=== PATIENT | female | born 1970 | race Caucasian/White ===

== ENCOUNTER → 2016-04-20 | Outpatient (CLI) | payer OTHER ==
[2015-05-04 21:40] VITALS: BP 134/74
[~2016-04-20] MED LIST: ALLO300T PO; ASPI-482 PO; CELE200C PO; CLON1TAB PO; CONTRAST GIVEN MC PRN; ERGO400T2 PO; HYDR-2672 PO; IOHEXOL 240 MG/ML 50ML VIAL. PO ONE; IOHEXOL 300 MG/ML 100ML VIAL. IV ONE; METO25TA9 PO; OXYC20TA34 PO; PRAV20TA2 PO; RANI150T2 PO
--- NOTE | 2016-04-20 14:25 | KCIC ---
PROCEDURE CT of the abdomen and pelvis with contrast HISTORY Pancreatitis. Chronic abdominal pain. Cholecystectomy. Total hysterectomy. COMPARISON April 22, 2014. TECHNIQUE 100 cc Omnipaque 300 intravenous contrast. No oral contrast. Exposure: One or more of the following individualized dose reduction techniques were utilized for this exam: 1. Automated exposure control. 2. Adjustment of the mA and/or kV according to patient size. 3. Use of iterative reconstruction technique. FINDINGS Lung bases are clear. No evidence of pneumoperitoneum. Multiple hypodense lesions are identified in the liver greater towards the left, and appears similar as on the prior study. The 2 largest lesions demonstrate fluid density, compatible with cysts. The spleen is unremarkable. There is some fatty atrophy of the pancreas which appears otherwise unremarkable and is unchanged since the prior study. No evidence of acute peripancreatic inflammation fluid. No evidence of adrenal mass. The right kidney appears unremarkable. The left kidney is small and atrophic similar to the prior study. There has been development of a 2.3 centimeter low-density lesion at the lower pole of the left kidney, measures 7 Hounsfield units, compatible with a cyst. This was not present on the prior study. The gallbladder surgically absent. The previously seen biliary ductal dilatation has diminished at both the intrahepatic and extrahepatic aspects. The aorta is non aneurysmal. No evidence of bowel obstruction. No evidence pericolonic inflammation. The appendix appears normal. No evidence of ascites. No significant lymph node enlargement. There is mild borderline thickening of the urinary bladder wall, but this is unchanged since the prior study. Significance questionable. There are surgical clips at the anterior abdomen. There is a slight lower lumbar spinal curvature. There is mild facet joint degenerative hypertrophy at the lower lumbar spine. IMPRESSION 1. Previously seen biliary ductal dilatation has improved. 2. Multiple hepatic lesions compatible with cysts are relatively stable. 3. Development of a left lower pole renal cyst since prior study. 4. Borderline urinary bladder wall thickening, stable since the prior study. 5. Fatty atrophy of the pancreas, without acute peripancreatic changes. Electronically signed by: Domingo Ellsi MD (Apr 20, 2016 14:24:31)
== END | disposition home or self-care (01) ==
LOC: KCIC CT 12:17
PROVIDERS: ATTEND Family Medicine
DX: K85.90 Acute pancreatitis without necrosis or infection, unspecified (principal)
CPT/HCPCS: 74177; Q9966; Q9967

== ENCOUNTER → 2016-05-05 | Day surgery (SDC) | payer OTHER ==
[~2016-05-05] MED LIST changes: +ACYC800T PO; +CARI350T PO; -CONTRAST GIVEN MC PRN; +FENTANYL PF 100 MCG/2 ML VIAL. IV PRN; +HYDR25TA PO; -IOHEXOL 240 MG/ML 50ML VIAL. PO ONE; -IOHEXOL 300 MG/ML 100ML VIAL. IV ONE; +IV RINGERS,LACTATED 1000ML 1,000 ML IV SCH; +LIDOCAINE 1% 1 ML SYRINGE. ID PRN; +MIDAZOLAM HCL 2 MG/2 ML VIAL. IV PRN; +PROPOFOL 20 ML IV ONE
[2016-05-05 11:05] VITALS: BP 101/78
--- NOTE | 2016-05-08 13:26 | PATHOLOGY ---
PATHOLOGY REPORT * * * * * * * * FINAL DIAGNOSIS: Duodenal biopsy: - No significant pathologic abnormalities. COMMENT: Sections of the duodenal biopsy reveal segments of duodenal mucosa. Where best oriented, the mucosal villi appear normal. There are no sprue-like changes or significant inflammatory changes. (JPM:csd; d/t: 05/08/2016) REPORT ELECTRONICALLY SIGNED BY: Talon Osman M.D. DATE/TIME: 05/08/2016 13:25 * * * * * * * * GROSS PATHOLOGY: Received in formalin labeled "Keli Solorio, duodenal biopsy, R/O celiac sprue," are eight segments of izaguirre soft tissue measuring 1.2 x 1.1 x 0.2 cm in aggregate dimensions and ranging from 0.3 to 0.5 cm in maximum dimension. The specimen is submitted entirely in cassette A1. (CAA; 05/05/2016) INITIAL CPT CODE(S): A; 04742 Professional services performed by [facility] [place] [address] Technical services performed by [facility] at [address] [place] [address]. SPECIMEN(S) RECEIVED: A.Duodenal biopsy CLINICAL HISTORY: Diarrhea, abdominal pain PATIENT: KELI SOLORIO /AGE: 12 1970 (Age: 46) PATIENT #: [id number] ALT CASE #: SPECIMEN COLLECTION DATE: 05/05/2016 SPECIMEN RECEIVED DATE: 05/05/2016 [facility] - [address] [place] [address] - PHONE: [phone] * * * END OF REPORT * * *
== END | disposition home or self-care (01) ==
LOC: ENDOS 09:06
PROVIDERS: ATTEND Internal Medicine Gastroenterology
DX: K64.0 First degree hemorrhoids (principal); K29.50 Unspecified chronic gastritis without bleeding; K31.9 Disease of stomach and duodenum, unspecified; F41.9 Anxiety disorder, unspecified; F32.9 Major depressive disorder, single episode, unspecified; M19.90 Unspecified osteoarthritis, unspecified site; E78.00 Pure hypercholesterolemia, unspecified; F17.200 Nicotine dependence, unspecified, uncomplicated; I10 Essential (primary) hypertension; Z80.41 Family history of malignant neoplasm of ovary
CPT/HCPCS: 43239; 45378; J2704

== ENCOUNTER 2016-08-23 21:51 | Inpatient (IN) | payer OTHER ==
[~2016-08-23] VITALS: Ht 170.2 cm; Wt 79.5 kg
[~2016-08-23 21:51] MED LIST changes: -FENTANYL PF 100 MCG/2 ML VIAL. IV PRN; -HYDR-2672 PO; +HYDR-2766 PO; -IV RINGERS,LACTATED 1000ML 1,000 ML IV SCH; -LIDOCAINE 1% 1 ML SYRINGE. ID PRN; -MIDAZOLAM HCL 2 MG/2 ML VIAL. IV PRN; -PROPOFOL 20 ML IV ONE
[2016-08-23 22:27] LABS: BASO # 0.1 x10^3/uL (0.0-0.2); BASO % 1 % (0-3); EOS % 0 % (0-3); HEMATOCRIT 41.7 % (36.0-47.0); HEMOGLOBIN 14.3 g/dL (12.0-15.5); LYMPH # 3.7 x10^3/uL (1.0-4.8); LYMPH % 19 % (24-48); MEAN CORPUSCULAR HEMOGLOBIN 32 pg (25-35); MEAN CORPUSCULAR HGB CONC 34 g/dL (31-37); MEAN CORPUSCULAR VOLUME 93 fL (79-100); MONO % 8 % (0-9); NEUT % 72 % (31-73); PLATELET COUNT 292 x10^3/uL (140-400); RED CELL DISTRIBUTION WIDTH 15.2 % (11.5-14.5); WHITE BLOOD COUNT 19.1 x10^3/uL (4.0-11.0)
[2016-08-23 22:47] LABS: PLT ESTIMATE ADEQUATE (ADEQUATE)
[2016-08-23 22:55] LABS: BILIRUBIN,URINE SMALL (NEG); GLUCOSE,URINE NEGATIVE (NEG); NITRITE,URINE NEGATIVE (NEG); PH,URINE 5.5; PROTEIN,URINE >=300 mg/dL (NEG-TRACE); UROBILINOGEN,URINE 0.2 mg/dL (0.2 mg/dL)
[2016-08-23] MEDS ORDERED: MULTIVIT INFUSN,ADULT 4,VIT K 10 ML, FOLIC ACID 1 MG, THIAMINE 100 MG in IV NORMAL SALI... IV ONE (23:00)
[2016-08-23 23:02] LABS: BARBITURATES NEG (NEG); BENZODIAZEPINES NEG (NEG); CANNABINOIDS NEG (NEG); COCAINE NEG (NEG); METHADONE NEG (NEG); OPIATES POS (NEG); PHENCYCLIDINE NEG (NEG)
[2016-08-23 23:03] LABS: BACTERIA,URINE FEW /HPF (0-FEW); RBC,URINE 0 /HPF (0-2); WBC,URINE OCC /HPF (0-4)
[2016-08-23 23:10] LABS: ETHANOL < 10 mg/dL (0-10)
[2016-08-23 23:23] LABS: CALCIUM 9.5 mg/dL (8.5-10.1); CREATININE 0.8 mg/dL (0.6-1.0); GFR 76.9; POTASSIUM 3.2 mmol/L (3.5-5.1)
[2016-08-24] MEDS: POTASSIUM CHLORIDE 20 MEQ/15 ML ORAL LIQUID. PO ONE ×2 (00:09→00:40)
[2016-08-24] MEDS: chlordiazePOXIDE HCL 25 MG CAPSULE PO SCH ×4 (00:15→17:47)
[2016-08-24 00:34] LABS: ALBUMIN 4.2 g/dL (3.4-5.0); DIRECT BILIRUBIN 0.2 mg/dL (0.0-0.2); TOTAL BILIRUBIN 0.7 mg/dL (0.2-1.0); TOTAL PROTEIN 7.6 g/dL (6.4-8.2)
[2016-08-24] MEDS ORDERED: ACETAMINOPHEN 325 MG TABLET. PO PRN (01:15)
[2016-08-24] MEDS ORDERED: ONDANSETRON PF 4 MG/2 ML VIAL. IV PRN ×2 (01:15→07:27)
[2016-08-24] MEDS: POTASSIUM CHLORIDE 40 MEQ in IV NORMAL SALINE 1000ML BAG 1,000 ML IV SCH ×3 (01:53→21:20)
[2016-08-24 03:00] VITALS: BP 132/93
--- NOTE | 2016-08-24 04:08 | ED.ADGEN ---
Past Medical History Past Medical History: Anxiety, Arthritis Additional Past Medical Histor: scoliosis, DDD,PANIC ATTACKS, AGORAPHOBIA, LIVER DAMAGE, CHRONIC BACK PAIN Past Surgical History: Additional Past Surgical Histo: pt is on a pain contract Alcohol Use: Occasionally Drug Use: None Adult General Chief Complaint Chief Complaint: SUICDAL IDEATION HPI HPI Patient is a 46 year old woman, history of anxiety, depression, arthritis, agoraphobia, who presents emergency department via EMS with a complaint of suicidal ideation. Patient states that she misses her family, especially her children, who are not with her currently, and feels that life is not worth living. She states that she plans to "shoot myself in the head with my gun". She she does have a gun at home. She denies any recent self injury behavior or ingestions. States that she did drink a half pint of liquor earlier today, states that she does drink daily, about a half pint of liquor, denies any drug use. She states that she has had suicidal ideation as been hospitalized previously, and has been seen by a counselor before, but not for several years. She states that she does take Klonopin as needed for anxiety as prescribed by her primary care provider. She is denying all complaints at this time, aside from a feeling of anxiety and depression with active suicidal ideation as stated. Denies any auditory or visual hallucinations, any homicidal ideation. Noted to be tachycardic in the 1 teens. She states she was recently seen at an outside hospital, cannot recall the name, where she was prescribed Pepcid, as she was having "excessive drooling". Review of Systems Review of Systems Constitutional: Denies fever or chills. [] Eyes: Denies change in visual acuity. [] HENT: Denies nasal congestion or sore throat. [] Respiratory: Denies cough or shortness of breath. [] Cardiovascular: Denies chest pain or edema. [] GI: Denies abdominal pain, nausea, vomiting, bloody stools or diarrhea. [] : Denies dysuria. [] Musculoskeletal: Denies back pain or joint pain. [] Integument: Denies rash. [] Neurologic: Denies headache, focal weakness or sensory changes. [] Endocrine: Denies polyuria or polydipsia. [] Lymphatic: Denies swollen glands. [] Psychiatric: Depression with suicidal ideation, anxiety. Current Medications Current Medications Current Medications Medications (Trade) Dose Ordered Sig/Chelly Start Time Stop Time Status Last Admin Dose Admin Multivitamins 10 ml/Folic Acid 1 mg/Thiamine HCl 100 mg/Sodium Chloride 1,011.2 ml @ 1,000 mls/ hr 1X ONCE 08/23/16 23:00 08/24/16 00:00 DC 08/23/16 22:33 1,000 MLS/HR Allergies Allergies Allergies Coded Allergies Type Severity Reaction Last Updated Verified ketorolac Allergy Severe anaphylaxis 05/05/16 No Penicillins Allergy Intermediate rash 05/05/16 Yes celecoxib Allergy Intermediate hives 05/05/16 Yes propoxyphene Allergy Intermediate 05/05/16 No haloperidol Adverse Reaction Severe altered mental status 05/05/16 Yes clindamycin Adverse Reaction Intermediate vomiting 05/05/16 Yes erythromycin base Adverse Reaction Intermediate vomiting 05/05/16 No Physical Exam Physical Exam Constitutional: Well developed, well nourished, no acute distress, non-toxic appearance. [] HENT: Normocephalic, atraumatic, bilateral external ears normal, oropharynx moist, no oral exudates, nose normal. [] Eyes: PERRLA, EOMI, conjunctiva normal, no discharge. [] Neck: Normal range of motion, no tenderness, supple, no stridor. [] Cardiovascular:Heart rate regular rhythm, no murmur [] Lungs & Thorax: Bilateral breath sounds clear to auscultation [] Abdomen: Bowel sounds normal, soft, no tenderness, no masses, no pulsatile masses. [] Skin: Warm, dry, no erythema, no rash. [] Back: No tenderness, no CVA tenderness. [] Extremities: No tenderness, no cyanosis, no clubbing, ROM intact, no edema. [] Neurologic: Alert and oriented X 3, normal motor function, normal sensory function, no focal deficits noted. [] Psychologic: Affect normal, judgement normal, mood normal. [] Current Patient Data Vital Signs Vital Signs Date Time Temp Pulse Resp B/P (MAP) Pulse Ox O2 Delivery O2 Flow Rate FiO2 08/23/16 23:54 98 22 146/97 (113) 98 Room Air 08/23/16 21:55 98.5 98.5 Lab Values Laboratory Tests Test 08/23/16 22:05 08/23/16 22:48 White Blood Count 19.1 x10^3/uL (4.0-11.0) H Red Blood Count 4.50 x10^6/uL (3.50-5.40) Hemoglobin 14.3 g/dL (12.0-15.5) Hematocrit 41.7 % (36.0-47.0) Mean Corpuscular Volume 93 fL (79-100) Mean Corpuscular Hemoglobin 32 pg (25-35) Mean Corpuscular Hemoglobin Concent 34 g/dL (31-37) Red Cell Distribution Width 15.2 % (11.5-14.5) H Platelet Count 292 x10^3/uL (140-400) Neutrophils (%) (Auto) 72 % (31-73) Lymphocytes (%) (Auto) 19 % (24-48) L Monocytes (%) (Auto) 8 % (0-9) Eosinophils (%) (Auto) 0 % (0-3) Basophils (%) (Auto) 1 % (0-3) Neutrophils # (Auto) 13.7 x10^3uL (1.8-7.7) H Lymphocytes # (Auto) 3.7 x10^3/uL (1.0-4.8) Monocytes # (Auto) 1.6 x10^3/uL (0.0-1.1) H Eosinophils # (Auto) 0.1 x10^3/uL (0.0-0.7) Basophils # (Auto) 0.1 x10^3/uL (0.0-0.2) Segmented Neutrophils % 68 % (35-66) H Band Neutrophils % 1 % (0-9) Lymphocytes % 25 % (24-48) Monocytes % 6 % (0-10) Platelet Estimate Adequate (ADEQUATE) Sodium Level 126 mmol/L (136-145) L Potassium Level 3.2 mmol/L (3.5-5.1) L Chloride Level 89 mmol/L (98-107) L Carbon Dioxide Level 23 mmol/L (21-32) Anion Gap 14 (6-14) Blood Urea Nitrogen 11 mg/dL (7-20) Creatinine 0.8 mg/dL (0.6-1.0) Estimated GFR (Cockcroft-Gault) 76.9 Glucose Level 139 mg/dL (70-99) H Calcium Level 9.5 mg/dL (8.5-10.1) Total Bilirubin 0.7 mg/dL (0.2-1.0) Direct Bilirubin 0.2 mg/dL (0.0-0.2) Aspartate Amino Transferase (AST) 19 U/L (15-37) Alanine Aminotransferase (ALT) 20 U/L (14-59) Alkaline Phosphatase 101 U/L (46-116) Total Protein 7.6 g/dL (6.4-8.2) Albumin 4.2 g/dL (3.4-5.0) Lipase 160 U/L (73-393) Salicylates Level 5.1 mg/dL (2.8-20.0) Salicylate Last Dose Date Unknown Salicylate Last Dose Time Unknown Acetaminophen Level < 2 mcg/ml (10-30) L Acetaminophen Last Dose Date Unknown Acetaminophen Last Dose Time Unknown Ethyl Alcohol Level < 10 mg/dL (0-10) Urine Collection Type U cath Urine Color [place] Urine Clarity Clear Urine pH 5.5 Urine Specific [place] 1.020 Urine Protein >=300 mg/dL (NEG-TRACE) Urine Glucose (UA) Negative mg/dL (NEG) Urine Ketones (Stick) Negative mg/dL (NEG) Urine Blood Moderate (NEG) Urine Nitrite Negative (NEG) Urine Bilirubin Small (NEG) Urine Urobilinogen Dipstick 0.2 mg/dL (0.2 mg/dL) Urine Leukocyte Esterase Negative (NEG) Urine RBC 0 /HPF (0-2) Urine WBC Occ /HPF (0-4) Urine Bacteria Few /HPF (0-FEW) Urine Hyaline Casts Few /HPF Urine Mucus Mod /LPF Urine Opiates Screen Pos (NEG) Urine Methadone Screen Neg (NEG) Urine Barbiturates Neg (NEG) Urine Phencyclidine Screen Neg (NEG) Urine Amphetamine/Methamphetamine Neg (NEG) Urine Benzodiazepines Screen Neg (NEG) Urine Cocaine Screen Neg (NEG) Urine Cannabinoids Screen Neg (NEG) Urine Ethyl Alcohol (NEG) Laboratory Tests 08/23/16 22:05 Laboratory Tests 08/23/16 22:05 EKG EKG EC: Sinus tachycardia, heart rate 119 bpm, upright axis, QTC of 504, AK of 138, QR 72, aside from mildly prolonged QTc, and contour abnormalities noted in the anterior lateral leads, no other abnormalities identified. Abdomen normal ECG, does not meet STEMI criteria. As interpreted by me. [] Radiology/Procedures Radiology/Procedures Chest x-ray: Two-view: Normal cardiopulmonary silhouette, no infiltrates, no effusions, no pneumothorax, no soft tissue or bony abnormalities identified. As interpreted by me. [] Course & Med Decision Making Course & Med Decision Making Pertinent Labs and Imaging studies reviewed. (See chart for details) Patient noted be tachycardic upon arrival, admits to alcohol use, states that she is anxious, and is actively suicidal. Discussed with patient that she will need be medically cleared, and medical clearance is obtained and will be able to refer her to the psychiatric assessment team to for assistance with her depression. Patient is agreeable this plan. Due to her report of daily alcohol use, banana bag infusion initiated, laboratory studies obtained. Patient remains mildly tachycardic, heart rate now in the 90s to low 100s blood pressure elevated, 160s over 80s and 90s, respiratory rate 18, unlabored, oxygen saturation between 95-98% on room air. Laboratory studies reveal a sodium of 126, and a potassium of 3.2, patient with leukocytosis of 19 with a bandemia and a left shift. Urinalysis unremarkable. Patient states that she has an occasional non-productive cough, but denies abdominal pain, nausea or vomiting, any difficulty breathing, productive cough, fevers or chills, or other source for her leukocytosis. No recent medication ingestions per report. Discussed with patient that due to her laboratory abnormalities, she'll require admission to the hospital with administration of IV fluids, repletion, and monitoring. Patient is agreeable this plan. She is placed on alcohol withdrawal protocol, alcohol level in the ED is less than 10. She was able to tolerate 28 oral potassium in the ED, additional 40 mEq of potassium placed in normal saline to be infused at 100 MLS an hour, has no source for her leukocytosis is identified, will hold off on treatment, will continue to follow laboratory studies this may be reactive process. Patient admitted to the medical telemetry floor with plan for monitoring, consultation with the psychiatric assessment team when she is medically cleared, under the service of Dr. Markham. Vanessa Disclaimer Vanessa Disclaimer This electronic medical record was generated, in whole or in part, using a voice recognition dictation system. Departure Impression: Primary Impression: Suicidal ideations Additional Impressions: Hyponatremia Tachycardia Disposition: 09 ADMITTED INPATIENT Condition: STABLE Problem Qualifiers MACHELLE LAZCANO DO Aug 24, 2016 04:08
--- NOTE | 2016-08-24 06:48 | EKG ---
[facility] [address] [place] [address] Test Date: 2016-08-23 Test Time: 22:34:44 Pat Name: JANINA BOND Department: Room: Gender: F [employer]rom[employer]ist: : 1970 Requested By: MACHELLE LAZCANO Order Number: [id number] Reading MD: Measurements Intervals [place] Rate: 119 P: 55 RI: 138 QRS: 7 QRSD: 72 T: 62 QT: 358 QTc: 504 Interpretive Statements SINUS TACHYCARDIA LEFT ATRIAL ABNORMALITY QRS(T) CONTOUR ABNORMALITY CONSIDER ANTEROLATERAL MYOCARDIAL DAMAGE ABNORMAL ECG RI6.01 No previous ECG available for comparison
[2016-08-24 07:00] VITALS: BP 141/87
--- NOTE | 2016-08-24 07:18 | RAD ---
Chest, 2 views, 08/23/2016: History: Cough Comparison is made to a study from 12/09/2009. The heart size and pulmonary vascularity are normal. No pulmonary infiltrates are seen. There is no evidence of pleural fluid. IMPRESSION: No acute cardiopulmonary abnormality is detected.
[2016-08-24 10:38] VITALS: BP 150/95
[2016-08-24] MEDS ORDERED: CARISOPRODOL 350 MG TABLET PO PRN (11:30)
--- NOTE | 2016-08-24 11:32 | PDOC1 ---
History and Physical Date of Admission Date of Admission DATE: 08/24/16 TIME: 11:19 Identification/Chief Complaint Chief Complaint SI Problems: Source Source: Caregiver, Chart review, Patient History of Present Illness History of Present Illness 46 y.o female, admitted thru ER last night bec of active SI. She has solid plans of hurting ehrself, she has a gun at home and plans on shooting herself, She does have hx of previous suicide atte,pts before, last was yrs ago , Positive hx of Depression in family, father I believe also had SI? and major depression, FAther ? and she breaks down in tears as soon as I ask details of how long ago this was or reason, Assessed by our mental counsellor, will try to look for psych facilities, Pt is agreeable to go in, Sitter at bedside, Ate only minimal breakfast this AM. LAbs: WBC 19, Na 126, K 3.2 UA clean urine nut has proteinuria, CXR I have personally reviewed, normal Past Medical History Cardiovascular: HTN Pulmonary: Bronchitis Psych: Depression Infectious disease: Herpes simplex2 Past Surgical History Past Surgical History: No pertinent history Family History Family History: Depression Family History: Parent Social History Smoke: No ALCOHOL: rare Drugs: None Current Problem List Problem List Problems Medical Problems: (1) Hyponatremia Status: Acute (2) Suicidal ideations Status: Acute (3) Tachycardia Status: Acute Problems: Current Medications Current Medications Current Medications Multivitamins 10 ml/Folic Acid 1 mg/Thiamine HCl 100 mg/Sodium Chloride 1,011.2 ml @ 1,000 mls/ hr 1X ONCE IV Last administered on 08/23/16 22:33; Start 08/23 at 23:00; Stop 08/24/16 at 00:00; Status DC Potassium Chloride (KCl Oral Soln) 40 meq 1X ONCE PO Last administered on 00:40; Start 08/24/16 at 00:15; Stop 08/24/16 at 00:16; Status DC Chlordiazepoxide (Librium) 25 mg Q6HRS PO Last administered on 08/24/16 05:42; Start 08/24/16 at 00:15; Stop 08/25/16 at 06:01 Ondansetron HCl (Zofran) 4 mg PRN Q8HRS PRN IV NAUSEA/VOMITING; Start 08/24/16 at 01:15; Stop 08/24/16 at 07:28; Status DC Potassium Chloride 40 meq/ Sodium Chloride 1,020 ml @ 100 mls/hr [id number] IV Last administered on 08/24/16t 01:53; Start 08/24/16 at 02:00; Stop 08/25/16 at 01: 59 Acetaminophen (Tylenol) 650 mg PRN Q4HRS PRN PO FEVER; Start 08/24/16 at 01:15; Stop 08/25/16 at 01:14 Ondansetron HCl (Zofran) 4 mg PRN Q6HRS PRN IV NAUSEA/VOMITING; Start 08/24/16 at 07:27; Stop 08/25/16 at 07:26 Active Scripts Active Reported Hydroxyzine Hcl 25 Mg Tablet 25 Mg PO TID Acyclovir 800 Mg Tablet 800 Mg PO DAILY Soma (Carisoprodol) 350 Mg Tablet 350 Mg PO TID&HS Klonopin (Clonazepam) 1 Mg Tablet 1 Tab PO TID Allopurinol 300 Mg Tablet 1 Tab PO DAILY Metoprolol Succinate ( Xl ) (Metoprolol Succinate) 25 Mg Tab.er.24h 1 Tab PO DAILY Pravastatin Sodium 20 Mg Tablet 1 Tab PO DAILY Celebrex (Celecoxib) 200 Mg Capsule 1 Cap PO DAILY Hydrocodone-Apap 10-325 (Hydrocodone Bit/Acetaminophen) 1 Each Tablet 1 Tab PO PRN Q6HRS PRN Oxycontin (Oxycodone HCl) 20 Mg Tab.er.12h 20 Mg PO BID Vitamin D2 (Ergocalciferol (Vitamin D2)) 400 Unit Tablet 400 Unit PO Ranitidine Hcl 150 Mg Tablet 1 Tab PO BID Aspir 81 (Aspirin) 81 Mg Tablet.dr 1 Tab PO DAILY Allergies Allergies: Coded Allergies: ketorolac (Unverified Allergy, Severe, anaphylaxis, 05/05/16) Penicillins (Verified Allergy, Intermediate, rash, 05/05/16) celecoxib (Verified Allergy, Intermediate, hives, 05/05/16) propoxyphene (Unverified Allergy, Intermediate, 05/05/16) haloperidol (Verified Adverse Reaction, Severe, altered mental status, ) clindamycin (Verified Adverse Reaction, Intermediate, vomiting, 05/05/16) erythromycin base (Unverified Adverse Reaction, Intermediate, vomiting, ) ROS General: No: Chills, Night Sweats, Fatigue, Malaise, Appetite, Other PSYCHOLOGICAL ROS: YES: Behavioral Disorder, Decreased libido, Depression, Irritablity, Mood Swings Eyes: No Blurry vision, No Decreased vision, No Double vision, No Dry eyes, No Excessive tearing, No Eye Pain, No Itchy Eyes, No Loss of vision, No Photophobia , No Scotomata, No Uses contacts, No Uses glasses, No Other HEENT: No: Heacaches, Visual Changes, Hearing change, Nasal congestion, Nasal discharge, Oral lesions, Sinus pain, Sore Throat, Epistaxis, Sneezing, Snoring, Tinnitus, Vertigo, Vocal changes, Other ALLERGY AND IMMUNOLOGY: No: Hives, Insect Bite Sensitivity, Itchy/Watery Eyes, Nasal Congestion, Post Nasal Drip, Seasonal Allergies, Other Hematological and Lymphatic: No: Bleeding Problems, Blood Clots, Blood Transfusions, Brusing, Night Sweats, Pallor, Swollen Lymph Nodes, Other ENDOCRINE: No: Breast Changes, Galactorrhea, Hair Pattern Changes, Hot Flashes , Malaise/lethargy, Mood Swings, Palpitations, Polydipsia/polyuria, Skin Changes , Temperature Intolerance, Unexpected Weight Changes, Other Breast: No New/Changing Breast Lumps, No Nipple changes, No Nipple discharge, No Other Respiratory: No: Cough, Hemoptysis, Orthopnea, Pleuritic Pain, Shortness of breath, SOB with excertion, Sputum Changes, Stridor, Tachypnea, Wheezing, Other Cardiovascular: No Chest Pain, No Palpitations, No Orthopnea, No Paroxysmal Noc. Dyspnea, No Edema, No Lt Headedness, No Other Gastrointestinal: No Nausea, No Vomiting, No Abdominal Pain, No Diarrhea, No Constipation, No Melena, No Hematochezia, No Other Genitourinary: No Dysuria, No Frequency, No Incontinence, No Hematuria, No Retention, No Discharge, No Urgency, No Pain, No Flank Pain, No Other, No , No , No , No , No , No , No Musculoskeletal: No Gait Disturbance, No Joint Pain, No Joint Stiffness, No Joint Swelling, No Muscle Pain, No Muscular Weakness, No Pain In:, No Swelling In:, No Other Neurological: Yes Behavorial Changes Skin: No Dry Skin, No Eczema, No Hair Changes, No Lumps, No Mole Changes, No Mottling, No Nail Changes, No Pruritus, No Rash, No Skin Lesion Changes, No Other, No Acne Physical Exam General: Alert, Oriented X3, Cooperative, No acute distress HEENT: Atraumatic, PERRLA, EOMI Lungs: Clear to auscultation, Normal air movement Heart: S1S2, RRR, no thrills, no rubs, no gallops, no murmurs Cardiovascular: S1, S2 Breasts: Normal, Rt breast nml w/o mass, Lt breast nml w/o mass, Nipples normal Abdomen: Normal bowel sounds, Soft, No tenderness, No hepatosplenomegaly, No masses Rectal Exam: not examined PELVIC: Nml ext genitalia Extremities: No clubbing, No cyanosis, No edema, Normal pulses, No tenderness/ swelling Skin: No rashes, No breakdown, No significant lesion Neuro: Normal gait, Normal speech, Strength at 5/5 X4 ext, Normal tone, Sensation intact, Cranial nerves 3-12 NL, Reflexes 2+ Psych/Mental Status: Mental status NL, Mood NL Vitals Vitals Vital Signs Date Time Temp Pulse Resp B/P (MAP) Pulse Ox O2 Delivery O2 Flow Rate FiO2 08/24/16 10:38 97.9 108 18 150/95 (113) 98 Room Air 97.9 Labs Labs Laboratory Tests Test 08/23/16 22:05 08/23/16 22:48 White Blood Count 19.1 x10^3/uL (4.0-11.0) Red Blood Count 4.50 x10^6/uL (3.50-5.40) Hemoglobin 14.3 g/dL (12.0-15.5) Hematocrit 41.7 % (36.0-47.0) Mean Corpuscular Volume 93 fL (79-100) Mean Corpuscular Hemoglobin 32 pg (25-35) Mean Corpuscular Hemoglobin Concent 34 g/dL (31-37) Red Cell Distribution Width 15.2 % (11.5-14.5) Platelet Count 292 x10^3/uL (140-400) Neutrophils (%) (Auto) 72 % (31-73) Lymphocytes (%) (Auto) 19 % (24-48) Monocytes (%) (Auto) 8 % (0-9) Eosinophils (%) (Auto) 0 % (0-3) Basophils (%) (Auto) 1 % (0-3) Neutrophils # (Auto) 13.7 x10^3uL (1.8-7.7) Lymphocytes # (Auto) 3.7 x10^3/uL (1.0-4.8) Monocytes # (Auto) 1.6 x10^3/uL (0.0-1.1) Eosinophils # (Auto) 0.1 x10^3/uL (0.0-0.7) Basophils # (Auto) 0.1 x10^3/uL (0.0-0.2) Segmented Neutrophils % 68 % (35-66) Band Neutrophils % 1 % (0-9) Lymphocytes % 25 % (24-48) Monocytes % 6 % (0-10) Platelet Estimate Adequate (ADEQUATE) Sodium Level 126 mmol/L (136-145) Potassium Level 3.2 mmol/L (3.5-5.1) Chloride Level 89 mmol/L (98-107) Carbon Dioxide Level 23 mmol/L (21-32) Anion Gap 14 (6-14) Blood Urea Nitrogen 11 mg/dL (7-20) Creatinine 0.8 mg/dL (0.6-1.0) Estimated GFR (Cockcroft-Gault) 76.9 Glucose Level 139 mg/dL (70-99) Calcium Level 9.5 mg/dL (8.5-10.1) Total Bilirubin 0.7 mg/dL (0.2-1.0) Direct Bilirubin 0.2 mg/dL (0.0-0.2) Aspartate Amino Transf (AST/SGOT) 19 U/L (15-37) Alanine Aminotransferase (ALT/SGPT) 20 U/L (14-59) Alkaline Phosphatase 101 U/L (46-116) Total Protein 7.6 g/dL (6.4-8.2) Albumin 4.2 g/dL (3.4-5.0) Lipase 160 U/L (73-393) Salicylates Level 5.1 mg/dL (2.8-20.0) Salicylate Last Dose Date Unknown Salicylate Last Dose Time Unknown Acetaminophen Level < 2 mcg/ml (10-30) Acetaminophen Last Dose Date Unknown Acetaminophen Last Dose Time Unknown Ethyl Alcohol Level < 10 mg/dL (0-10) Urine Collection Type U cath Urine Color [place] Urine Clarity Clear Urine pH 5.5 Urine Specific [place] 1.020 Urine Protein >=300 mg/dL (NEG-TRACE) Urine Glucose (UA) Negative mg/dL (NEG) Urine Ketones (Stick) Negative mg/dL (NEG) Urine Blood Moderate (NEG) Urine Nitrite Negative (NEG) Urine Bilirubin Small (NEG) Urine Urobilinogen Dipstick 0.2 mg/dL (0.2 mg/dL) Urine Leukocyte Esterase Negative (NEG) Urine RBC 0 /HPF (0-2) Urine WBC Occ /HPF (0-4) Urine Bacteria Few /HPF (0-FEW) Urine Hyaline Casts Few /HPF Urine Mucus Mod /LPF Urine Opiates Screen Pos (NEG) Urine Methadone Screen Neg (NEG) Urine Barbiturates Neg (NEG) Urine Phencyclidine Screen Neg (NEG) Urine Amphetamine/Methamphetamine Neg (NEG) Urine Benzodiazepines Screen Neg (NEG) Urine Cocaine Screen Neg (NEG) Urine Cannabinoids Screen Neg (NEG) Urine Ethyl Alcohol (NEG) Laboratory Tests Test 08/23/16 22:05 08/23/16 22:48 White Blood Count 19.1 x10^3/uL (4.0-11.0) Red Blood Count 4.50 x10^6/uL (3.50-5.40) Hemoglobin 14.3 g/dL (12.0-15.5) Hematocrit 41.7 % (36.0-47.0) Mean Corpuscular Volume 93 fL (79-100) Mean Corpuscular Hemoglobin 32 pg (25-35) Mean Corpuscular Hemoglobin Concent 34 g/dL (31-37) Red Cell Distribution Width 15.2 % (11.5-14.5) Platelet Count 292 x10^3/uL (140-400) Neutrophils (%) (Auto) 72 % (31-73) Lymphocytes (%) (Auto) 19 % (24-48) Monocytes (%) (Auto) 8 % (0-9) Eosinophils (%) (Auto) 0 % (0-3) Basophils (%) (Auto) 1 % (0-3) Neutrophils # (Auto) 13.7 x10^3uL (1.8-7.7) Lymphocytes # (Auto) 3.7 x10^3/uL (1.0-4.8) Monocytes # (Auto) 1.6 x10^3/uL (0.0-1.1) Eosinophils # (Auto) 0.1 x10^3/uL (0.0-0.7) Basophils # (Auto) 0.1 x10^3/uL (0.0-0.2) Segmented Neutrophils % 68 % (35-66) Band Neutrophils % 1 % (0-9) Lymphocytes % 25 % (24-48) Monocytes % 6 % (0-10) Platelet Estimate Adequate (ADEQUATE) Sodium Level 126 mmol/L (136-145) Potassium Level 3.2 mmol/L (3.5-5.1) Chloride Level 89 mmol/L (98-107) Carbon Dioxide Level 23 mmol/L (21-32) Anion Gap 14 (6-14) Blood Urea Nitrogen 11 mg/dL (7-20) Creatinine 0.8 mg/dL (0.6-1.0) Estimated GFR (Cockcroft-Gault) 76.9 Glucose Level 139 mg/dL (70-99) Calcium Level 9.5 mg/dL (8.5-10.1) Total Bilirubin 0.7 mg/dL (0.2-1.0) Direct Bilirubin 0.2 mg/dL (0.0-0.2) Aspartate Amino Transf (AST/SGOT) 19 U/L (15-37) Alanine Aminotransferase (ALT/SGPT) 20 U/L (14-59) Alkaline Phosphatase 101 U/L (46-116) Total Protein 7.6 g/dL (6.4-8.2) Albumin 4.2 g/dL (3.4-5.0) Lipase 160 U/L (73-393) Salicylates Level 5.1 mg/dL (2.8-20.0) Salicylate Last Dose Date Unknown Salicylate Last Dose Time Unknown Acetaminophen Level < 2 mcg/ml (10-30) Acetaminophen Last Dose Date Unknown Acetaminophen Last Dose Time Unknown Ethyl Alcohol Level < 10 mg/dL (0-10) Urine Collection Type U cath Urine Color [place] Urine Clarity Clear Urine pH 5.5 Urine Specific [place] 1.020 Urine Protein >=300 mg/dL (NEG-TRACE) Urine Glucose (UA) Negative mg/dL (NEG) Urine Ketones (Stick) Negative mg/dL (NEG) Urine Blood Moderate (NEG) Urine Nitrite Negative (NEG) Urine Bilirubin Small (NEG) Urine Urobilinogen Dipstick 0.2 mg/dL (0.2 mg/dL) Urine Leukocyte Esterase Negative (NEG) Urine RBC 0 /HPF (0-2) Urine WBC Occ /HPF (0-4) Urine Bacteria Few /HPF (0-FEW) Urine Hyaline Casts Few /HPF Urine Mucus Mod /LPF Urine Opiates Screen Pos (NEG) Urine Methadone Screen Neg (NEG) Urine Barbiturates Neg (NEG) Urine Phencyclidine Screen Neg (NEG) Urine Amphetamine/Methamphetamine Neg (NEG) Urine Benzodiazepines Screen Neg (NEG) Urine Cocaine Screen Neg (NEG) Urine Cannabinoids Screen Neg (NEG) Urine Ethyl Alcohol (NEG) VTE Prophylaxis Ordered VTE Prophylaxis Devices: Yes VTE Pharmacological Prophylaxi: Yes Assessment/Plan Assessment/Plan 1. Active suicide intent with clear plan 2. Severe major depression 3. FAm hx of major depression 4. Hyponatremia 5. Hypokalemia PLAN: admit Cont NS IVF Check TSH Replace K orally Recheck BMP juvencio SW assessment/mental healths screen - on going COnt justin malave pt, RN , justin and MICHAELA Vanegas MD Aug 24, 2016 11:32
[2016-08-24] MEDS ORDERED: CELECOXIB 200 MG CAPSULE. PO SCH (12:00)
[2016-08-24] MEDS: METOPROLOL SUCC 24HR ER 25 MG TAB.ER.24H. PO SCH (12:52)
[2016-08-24] MEDS: ASPIRIN ENTERIC COATED 81 MG TABLET.DR. PO SCH (12:52)
[2016-08-24] MEDS: ALLOPURINOL 300 MG TABLET. PO SCH (12:52)
[2016-08-24] MEDS: hydrOXYzine PAMOATE 25 MG CAPSULE PO SCH ×2 (12:52→20:46)
[2016-08-24] MEDS: FAMOTIDINE 20 MG TABLET. PO SCH ×2 (12:53→20:46)
[2016-08-24 14:31] VITALS: BP 152/94
--- NOTE | 2016-08-24 15:02 | ACF ---
Admission Forms Criteria PSYCHIATRIC DISORDERS Clinical Indications for Inpatient Care (Place 'X' for any and all applicable criteria): Ongoing inpatient care may be needed for 1 or more of the following(1)(2)(3)(4)( 6)(7)(8): [X ]I. Danger to self or others not manageable at lower level of care. [ ]II. Grave disability (eg, inability to perform self care necessary at lower level of care) [ ]III. Agitation or inappropriate behavior interfering with care for primary condition (eg, attempting to discontinue lines or drains prematurely, unable to cooperate with respiratory care) [ ]IV. Severe disability or disorder indicated by ALL of the following: [ ]a) Severe behavioral health disorder-related symptoms or condition indicated by 1 or more of the following: [ ]i) Severe problem with cognition, memory, judgment, or impulse control [ ]ii) Severe clinical manifestations (eg, hallucinations, delusions, other acute psychotic symptoms, wilian, extreme agitation or anxiety) [ ]b) Patient management at lower level of care is not feasible until acute intervention or modification is initiated. Extended stay beyond goal length of stay for the primary condition may be needed untilALLof the following are present(1)(2)(3)(4)7)17)(23): [ ]a) Danger to self or others is absent or manageable at lower level of care [ ]b) Behavior crisis management, including physical or chemical restraints, is required and is not available at a lower level of care. [ ]c) Behavioral symptoms (e.g., agitation, somnolence, inappropriate behavior) are present, and are not manageable at a lower level of care. [ ]d) Patient cannot understand follow-up treatment and crisis plan. [ ]e) Provider and supports are sufficiently available at lower level of care. [ ]f) Patient can participate (e.g., verify absence of plan for harm) and is in needed of monitoring. The original [facility] content created by [facility] has been revised. The portions of the content which have been revised are identified through the use of italic text, and [employer] has neither reviewed nor approved the modified material. All other unmodified content is copyright [facility]. Please see references footnoted in the original [facility] edition 2015 Admission Criteria Met?: Yes ERICKA REYES Aug 24, 2016 15:02
[2016-08-24 19:00] VITALS: BP 140/93
[2016-08-24] MEDS: ATORVASTATIN CALCIUM 10 MG TABLET. PO SCH (20:46)
[2016-08-24 23:00] VITALS: BP 128/93
[2016-08-25] MEDS: chlordiazePOXIDE HCL 25 MG CAPSULE PO SCH ×2 (00:19→06:04)
[2016-08-25 03:00] VITALS: BP 134/90
[2016-08-25 05:10] LABS: BASO % 0 % (0-3); EOS % 1 % (0-3); HEMATOCRIT 36.7 % (36.0-47.0); HEMOGLOBIN 12.3 g/dL (12.0-15.5); LYMPH # 2.5 x10^3/uL (1.0-4.8); LYMPH % 19 % (24-48); MEAN CORPUSCULAR HEMOGLOBIN 32 pg (25-35); MEAN CORPUSCULAR HGB CONC 34 g/dL (31-37); MEAN CORPUSCULAR VOLUME 96 fL (79-100); MONO % 6 % (0-9); NEUT % 74 % (31-73); PLATELET COUNT 207 x10^3/uL (140-400); RED BLOOD COUNT 3.83 x10^6/uL (3.50-5.40); RED CELL DISTRIBUTION WIDTH 15.4 % (11.5-14.5)
[2016-08-25 05:34] LABS: CALCIUM 8.3 mg/dL (8.5-10.1); CREATININE 0.8 mg/dL (0.6-1.0); GFR 76.9; POTASSIUM 4.4 mmol/L (3.5-5.1)
[2016-08-25 06:48] VITALS: BP 139/91
[2016-08-25] MEDS: ASPIRIN ENTERIC COATED 81 MG TABLET.DR. PO SCH (09:12)
[2016-08-25] MEDS: clonazePAM 1 MG TABLET PO PRN ×2 (09:12→20:39)
[2016-08-25] MEDS: hydrOXYzine PAMOATE 25 MG CAPSULE PO SCH ×3 (09:12→20:38)
[2016-08-25] MEDS: ALLOPURINOL 300 MG TABLET. PO SCH (09:12)
[2016-08-25] MEDS: FAMOTIDINE 20 MG TABLET. PO SCH ×2 (09:12→20:39)
[2016-08-25] MEDS: METOPROLOL SUCC 24HR ER 25 MG TAB.ER.24H. PO SCH (09:12)
[2016-08-25 10:14] VITALS: BP 148/99
--- NOTE | 2016-08-25 12:19 | PDOC3 ---
Discharge Summary Visit Information Date of Admission: Aug 24, 2016 Date of Discharge: Aug 25, 2016 Final Diagnosis Problems Medical Problems: (1) Hyponatremia Status: Acute (2) Suicidal ideations Status: Acute (3) Tachycardia Status: Acute Brief Hospital Course Allergies Allergies Coded Allergies Type Severity Reaction Last Updated Verified ketorolac Allergy Severe anaphylaxis 05/05/16 No Penicillins Allergy Intermediate rash 05/05/16 Yes celecoxib Allergy Intermediate hives 05/05/16 Yes propoxyphene Allergy Intermediate 05/05/16 No haloperidol Adverse Reaction Severe altered mental status 05/05/16 Yes clindamycin Adverse Reaction Intermediate vomiting 05/05/16 Yes erythromycin base Adverse Reaction Intermediate vomiting 05/05/16 No Vital Signs Vital Signs Date Time Temp Pulse Resp B/P (MAP) Pulse Ox O2 Delivery O2 Flow Rate FiO2 08/25/16 10:14 98.6 108 22 148/99 (115) 100 Room Air 98.6 Lab Results Laboratory Tests Test 08/23/16 22:05 08/23/16 22:48 08/25/16 04:50 White Blood Count 19.1 x10^3/uL (4.0-11.0) 13.0 x10^3/uL (4.0-11.0) Red Blood Count 4.50 x10^6/uL (3.50-5.40) 3.83 x10^6/uL (3.50-5.40) Hemoglobin 14.3 g/dL (12.0-15.5) 12.3 g/dL (12.0-15.5) Hematocrit 41.7 % (36.0-47.0) 36.7 % (36.0-47.0) Mean Corpuscular Volume 93 fL (79-100) 96 fL (79-100) Mean Corpuscular Hemoglobin 32 pg (25-35) 32 pg (25-35) Mean Corpuscular Hemoglobin Concent 34 g/dL (31-37) 34 g/dL (31-37) Red Cell Distribution Width 15.2 % (11.5-14.5) 15.4 % (11.5-14.5) Platelet Count 292 x10^3/uL (140-400) 207 x10^3/uL (140-400) Neutrophils (%) (Auto) 72 % (31-73) 74 % (31-73) Lymphocytes (%) (Auto) 19 % (24-48) 19 % (24-48) Monocytes (%) (Auto) 8 % (0-9) 6 % (0-9) Eosinophils (%) (Auto) 0 % (0-3) 1 % (0-3) Basophils (%) (Auto) 1 % (0-3) 0 % (0-3) Neutrophils # (Auto) 13.7 x10^3uL (1.8-7.7) 9.5 x10^3uL (1.8-7.7) Lymphocytes # (Auto) 3.7 x10^3/uL (1.0-4.8) 2.5 x10^3/uL (1.0-4.8) Monocytes # (Auto) 1.6 x10^3/uL (0.0-1.1) 0.8 x10^3/uL (0.0-1.1) Eosinophils # (Auto) 0.1 x10^3/uL (0.0-0.7) 0.1 x10^3/uL (0.0-0.7) Basophils # (Auto) 0.1 x10^3/uL (0.0-0.2) 0.0 x10^3/uL (0.0-0.2) Segmented Neutrophils % 68 % (35-66) Band Neutrophils % 1 % (0-9) Lymphocytes % 25 % (24-48) Monocytes % 6 % (0-10) Platelet Estimate Adequate (ADEQUATE) Sodium Level 126 mmol/L (136-145) 141 mmol/L (136-145) Potassium Level 3.2 mmol/L (3.5-5.1) 4.4 mmol/L (3.5-5.1) Chloride Level 89 mmol/L (98-107) 107 mmol/L (98-107) Carbon Dioxide Level 23 mmol/L (21-32) 22 mmol/L (21-32) Anion Gap 14 (6-14) 12 (6-14) Blood Urea Nitrogen 11 mg/dL (7-20) 10 mg/dL (7-20) Creatinine 0.8 mg/dL (0.6-1.0) 0.8 mg/dL (0.6-1.0) Estimated GFR (Cockcroft-Gault) 76.9 76.9 Glucose Level 139 mg/dL (70-99) 129 mg/dL (70-99) Calcium Level 9.5 mg/dL (8.5-10.1) 8.3 mg/dL (8.5-10.1) Total Bilirubin 0.7 mg/dL (0.2-1.0) Direct Bilirubin 0.2 mg/dL (0.0-0.2) Aspartate Amino Transf (AST/SGOT) 19 U/L (15-37) Alanine Aminotransferase (ALT/SGPT) 20 U/L (14-59) Alkaline Phosphatase 101 U/L (46-116) Total Protein 7.6 g/dL (6.4-8.2) Albumin 4.2 g/dL (3.4-5.0) Lipase 160 U/L (73-393) Thyroid Stimulating Hormone (TSH) 0.935 uIU/mL (0.358-3.74) Salicylates Level 5.1 mg/dL (2.8-20.0) Salicylate Last Dose Date Unknown Salicylate Last Dose Time Unknown Acetaminophen Level < 2 mcg/ml (10-30) Acetaminophen Last Dose Date Unknown Acetaminophen Last Dose Time Unknown Ethyl Alcohol Level < 10 mg/dL (0-10) Urine Collection Type U cath Urine Color [place] Urine Clarity Clear Urine pH 5.5 Urine Specific [place] 1.020 Urine Protein >=300 mg/dL (NEG-TRACE) Urine Glucose (UA) Negative mg/dL (NEG) Urine Ketones (Stick) Negative mg/dL (NEG) Urine Blood Moderate (NEG) Urine Nitrite Negative (NEG) Urine Bilirubin Small (NEG) Urine Urobilinogen Dipstick 0.2 mg/dL (0.2 mg/dL) Urine Leukocyte Esterase Negative (NEG) Urine RBC 0 /HPF (0-2) Urine WBC Occ /HPF (0-4) Urine Bacteria Few /HPF (0-FEW) Urine Hyaline Casts Few /HPF Urine Mucus Mod /LPF Urine Opiates Screen Pos (NEG) Urine Methadone Screen Neg (NEG) Urine Barbiturates Neg (NEG) Urine Phencyclidine Screen Neg (NEG) Urine Amphetamine/Methamphetamine Neg (NEG) Urine Benzodiazepines Screen Neg (NEG) Urine Cocaine Screen Neg (NEG) Urine Cannabinoids Screen Neg (NEG) Urine Ethyl Alcohol (NEG) Laboratory Tests Test 08/25/16 04:50 White Blood Count 13.0 x10^3/uL (4.0-11.0) Red Blood Count 3.83 x10^6/uL (3.50-5.40) Hemoglobin 12.3 g/dL (12.0-15.5) Hematocrit 36.7 % (36.0-47.0) Mean Corpuscular Volume 96 fL (79-100) Mean Corpuscular Hemoglobin 32 pg (25-35) Mean Corpuscular Hemoglobin Concent 34 g/dL (31-37) Red Cell Distribution Width 15.4 % (11.5-14.5) Platelet Count 207 x10^3/uL (140-400) Neutrophils (%) (Auto) 74 % (31-73) Lymphocytes (%) (Auto) 19 % (24-48) Monocytes (%) (Auto) 6 % (0-9) Eosinophils (%) (Auto) 1 % (0-3) Basophils (%) (Auto) 0 % (0-3) Neutrophils # (Auto) 9.5 x10^3uL (1.8-7.7) Lymphocytes # (Auto) 2.5 x10^3/uL (1.0-4.8) Monocytes # (Auto) 0.8 x10^3/uL (0.0-1.1) Eosinophils # (Auto) 0.1 x10^3/uL (0.0-0.7) Basophils # (Auto) 0.0 x10^3/uL (0.0-0.2) Sodium Level 141 mmol/L (136-145) Potassium Level 4.4 mmol/L (3.5-5.1) Chloride Level 107 mmol/L (98-107) Carbon Dioxide Level 22 mmol/L (21-32) Anion Gap 12 (6-14) Blood Urea Nitrogen 10 mg/dL (7-20) Creatinine 0.8 mg/dL (0.6-1.0) Estimated GFR (Cockcroft-Gault) 76.9 Glucose Level 129 mg/dL (70-99) Calcium Level 8.3 mg/dL (8.5-10.1) Brief Hospital Course Ms. Solorio is a 46 old [sex] who presented with [ ]46 y.o female, admitted thru ER last night bec of active SI. She has solid plans of hurting ehrself, she has a gun at home and plans on shooting herself, She does have hx of previous suicide atte,pts before, last was yrs ago, Positive hx of Depression in family, father I believe also had SI? and major depression, FAther ? and she breaks down in tears as soon as I ask details of how long ago this was or reason, Assessed by our mental counsellor, will try to look for psych facilities, Pt is agreeable to go in, Sitter at bedside, Ate only minimal breakfast this AM. LAbs: WBC 19, Na 126, K 3.2 UA clean urine nut has proteinuria, CXR I have personally reviewed, normal Course: Sitter continues, still some SI thoughts. Assessed by PAT - needs in pt psyh PAperowkr done TIme 34 mins, coordinating SW, PAT, paperwork, Etc and TIME WITH PT - BECAME tearful again with me today Discharge Information Condition at Discharge: Improved, Stable Disposition/Orders: Other (psych inpt) Scheduled Acyclovir (Acyclovir), 800 MG PO DAILY, (Reported) Allopurinol (Allopurinol), 1 TAB PO DAILY, (Reported) Aspirin (Aspir 81), 1 TAB PO DAILY, (Reported) Carisoprodol (Soma), 350 MG PO TID&HS, (Reported) Celecoxib (Celebrex), 1 CAP PO DAILY, (Reported) Clonazepam (Klonopin), 1 TAB PO TID, (Reported) Hydroxyzine Hcl (Hydroxyzine Hcl), 25 MG PO TID, (Reported) Metoprolol Succinate (Metoprolol Succinate ( Xl )), 1 TAB PO DAILY, (Reported) Oxycodone Hcl (Oxycontin), 20 MG PO BID, (Reported) Pravastatin Sodium (Pravastatin Sodium), 1 TAB PO DAILY, (Reported) Ranitidine Hcl (Ranitidine Hcl), 1 TAB PO BID, (Reported) Scheduled PRN Hydrocodone Bit/Acetaminophen (Hydrocodone-Apap 10-325 ), 1 TAB PO PRN Q6HRS PRN for PAIN, (Reported) Miscellaneous Medications Ergocalciferol (Vitamin D2) (Vitamin D2), 400 UNIT PO, (Reported) MICHAELA PINTO MD Aug 25, 2016 12:19
[2016-08-25 14:31] VITALS: BP 132/93
[2016-08-25 19:14] VITALS: BP 143/85
[2016-08-25] MEDS: ATORVASTATIN CALCIUM 10 MG TABLET. PO SCH (20:38)
[2016-08-25] MEDS: HYDROcodone/APAP 10/325 1 TAB TABLET PO PRN (20:38)
[2016-08-25 23:25] VITALS: BP 135/77
[2016-08-26 07:15] VITALS: BP 136/85
[2016-08-26] MEDS: hydrOXYzine PAMOATE 25 MG CAPSULE PO SCH ×3 (07:44→19:56)
[2016-08-26] MEDS: FAMOTIDINE 20 MG TABLET. PO SCH ×2 (07:44→19:56)
[2016-08-26] MEDS: HYDROcodone/APAP 10/325 1 TAB TABLET PO PRN ×2 (07:44→19:56)
[2016-08-26] MEDS: ALLOPURINOL 300 MG TABLET. PO SCH (08:18)
[2016-08-26] MEDS: ASPIRIN ENTERIC COATED 81 MG TABLET.DR. PO SCH (08:18)
[2016-08-26] MEDS: METOPROLOL SUCC 24HR ER 25 MG TAB.ER.24H. PO SCH (08:19)
[2016-08-26] MEDS: CELECOXIB 200 MG CAPSULE. PO SCH (09:11)
[2016-08-26 10:51] VITALS: BP 131/96
--- NOTE | 2016-08-26 11:51 | PDOC ---
PROGRESS NOTES Chief Complaint Chief Complaint 1. Hyponatremia 2. Current SI with means and plan 3. Tachycardia 4. Prev hx of SI 5. HTN 6. Depression History of Present Illness History of Present Illness pt is lying in bed this morning with little/no affect, she responds to questions with short phrases, she still expresses SI with plan and means due to firearms at home, awaiting [facility] transfer per with possibility at [facility] or [place] Vitals Vitals Vital Signs Date Time Temp Pulse Resp B/P (MAP) Pulse Ox O2 Delivery O2 Flow Rate FiO2 08/26/16 10:51 98.6 132 22 131/96 (108) 95 Room Air 98.6 Physical Exam General: Alert, Oriented X3, Cooperative, No acute distress Heart: Regular rate, No murmurs Lungs: Clear Abdomen: Normal bowel sounds, Soft, No tenderness Extremities: No clubbing, No cyanosis, No edema Skin: No rashes, No breakdown, No significant lesion Review of Systems Review of Systems denies nausea, vomiting, or PHILLIPS still expresses SI Assessment and Plan Assessmemt and Plan Assessment 1. Hyponatremia 2. Current SI with means and plan 3. Tachycardia 4. Prev hx of SI 5. HTN 6. Depression Plan 1. Continue 1:1 monitoring 2. Regular diet 3. Continue home meds 4. Discussed plan of care with nursing 5. PT/OT 6. Recheck CBC and BMP tomorrow 7. Reviewed imaging: CXR showed no acute processes 8. Discharge pending approval at [facility], possibly [facility] or [facility] Problems: Comment Review of Relevant I have reviewed the following items jme (where applicable) has been applied. Labs Laboratory Tests Test 08/25/16 04:50 White Blood Count 13.0 x10^3/uL (4.0-11.0) Red Blood Count 3.83 x10^6/uL (3.50-5.40) Hemoglobin 12.3 g/dL (12.0-15.5) Hematocrit 36.7 % (36.0-47.0) Mean Corpuscular Volume 96 fL (79-100) Mean Corpuscular Hemoglobin 32 pg (25-35) Mean Corpuscular Hemoglobin Concent 34 g/dL (31-37) Red Cell Distribution Width 15.4 % (11.5-14.5) Platelet Count 207 x10^3/uL (140-400) Neutrophils (%) (Auto) 74 % (31-73) Lymphocytes (%) (Auto) 19 % (24-48) Monocytes (%) (Auto) 6 % (0-9) Eosinophils (%) (Auto) 1 % (0-3) Basophils (%) (Auto) 0 % (0-3) Neutrophils # (Auto) 9.5 x10^3uL (1.8-7.7) Lymphocytes # (Auto) 2.5 x10^3/uL (1.0-4.8) Monocytes # (Auto) 0.8 x10^3/uL (0.0-1.1) Eosinophils # (Auto) 0.1 x10^3/uL (0.0-0.7) Basophils # (Auto) 0.0 x10^3/uL (0.0-0.2) Sodium Level 141 mmol/L (136-145) Potassium Level 4.4 mmol/L (3.5-5.1) Chloride Level 107 mmol/L (98-107) Carbon Dioxide Level 22 mmol/L (21-32) Anion Gap 12 (6-14) Blood Urea Nitrogen 10 mg/dL (7-20) Creatinine 0.8 mg/dL (0.6-1.0) Estimated GFR (Cockcroft-Gault) 76.9 Glucose Level 129 mg/dL (70-99) Calcium Level 8.3 mg/dL (8.5-10.1) Medications Current Medications Multivitamins 10 ml/Folic Acid 1 mg/Thiamine HCl 100 mg/Sodium Chloride 1,011.2 ml @ 1,000 mls/ hr 1X ONCE IV Last administered on 08/23/16 22:33; Start 08/23 at 23:00; Stop 08/24/16 at 00:00; Status DC Potassium Chloride (KCl Oral Soln) 40 meq 1X ONCE PO Last administered on 00:40; Start 08/24/16 at 00:15; Stop 08/24/16 at 00:16; Status DC Chlordiazepoxide (Librium) 25 mg Q6HRS PO Last administered on 08/25/16 06:04; Start 08/24/16 at 00:15; Stop 08/25/16 at 06:01; Status DC Ondansetron HCl (Zofran) 4 mg PRN Q8HRS PRN IV NAUSEA/VOMITING; Start 08/24/16 at 01:15; Stop 08/24/16 at 07:28; Status DC Potassium Chloride 40 meq/ Sodium Chloride 1,020 ml @ 100 mls/hr [id number] IV Last administered on 08/24/16 21:20; Start 08/24/16 at 02:00; Stop 08/25/16 at 01: 59; Status DC Acetaminophen (Tylenol) 650 mg PRN Q4HRS PRN PO FEVER; Start 08/24/16 at 01:15; Stop 08/25/16 at 01:14; Status DC Ondansetron HCl (Zofran) 4 mg PRN Q6HRS PRN IV NAUSEA/VOMITING; Start 08/24/16 at 07:27; Stop 08/25/16 at 07:26; Status DC Allopurinol (Zyloprim) 300 mg DAILY PO Last administered on 08/26/16 08:18; Start 08/24/16 at 12:00 Aspirin (Ecotrin) 81 mg DAILY PO Last administered on 08/26/16 08:18; Start 08/24/16 at 12:00 Carisoprodol (Soma) 350 mg PRN TID PRN PO spasms; Start 08/24/16 at 11:30 Celecoxib (CeleBREX) 200 mg DAILY PO ; Start 08/24/16 at 12:00; Stop 08/24/16 at 12:00; Status DC Clonazepam (KlonoPIN) 1 mg PRN TID PRN PO nerves Last administered on 08/25/16 20:39; Start 08/24/16 at 11:30 Acetaminophen/ Hydrocodone Bitart (Lortab 10/325) 1 tab PRN Q6HRS PRN PO PAIN Last administered on 08/26/16 07:44; Start 08/24/16 at 11:30 Metoprolol Succinate (Toprol Xl) 25 mg DAILY PO Last administered on 08/26/16 08:19; Start 08/24/16 at 12:00 Hydroxyzine Pamoate (Vistaril) 25 mg TID PO Last administered on 08/26/16 07:44 ; Start 08/24/16 at 14:00 Atorvastatin Calcium (Lipitor) 5 mg QHS PO Last administered on 08/25/16 20:38 ; Start 08/24/16 at 21:00 Famotidine (Pepcid) 20 mg BID PO Last administered on 08/26/16 07:44; Start 08/24/16 at 12:00 Lorazepam (Ativan) 2 mg PRN Q6HRS PRN IV ANXIETY / AGITATION Last administered on 08/26/16 07:45; Start 08/24/16 at 19:45 Celecoxib (CeleBREX) 200 mg DAILY PO Last administered on 08/26/16 09:11; Start 08/26/16 at 09:00 Active Scripts Active Reported Hydroxyzine Hcl 25 Mg Tablet 25 Mg PO TID Acyclovir 800 Mg Tablet 800 Mg PO DAILY Soma (Carisoprodol) 350 Mg Tablet 350 Mg PO TID&HS Klonopin (Clonazepam) 1 Mg Tablet 1 Tab PO TID Allopurinol 300 Mg Tablet 1 Tab PO DAILY Metoprolol Succinate ( Xl ) (Metoprolol Succinate) 25 Mg Tab.er.24h 1 Tab PO DAILY Pravastatin Sodium 20 Mg Tablet 1 Tab PO DAILY Celebrex (Celecoxib) 200 Mg Capsule 1 Cap PO DAILY Hydrocodone-Apap 10-325 (Hydrocodone Bit/Acetaminophen) 1 Each Tablet 1 Tab PO PRN Q6HRS PRN Oxycontin (Oxycodone HCl) 20 Mg Tab.er.12h 20 Mg PO BID Vitamin D2 (Ergocalciferol (Vitamin D2)) 400 Unit Tablet 400 Unit PO Ranitidine Hcl 150 Mg Tablet 1 Tab PO BID Aspir 81 (Aspirin) 81 Mg Tablet. 1 Tab PO DAILY Vitals/I & O Vital Sign - Last 24 Hours 08/25/16 08/25/16 08/25/16 08/25/16 14:31 19:14 20:00 20:38 Temp 98.5 98.1 98.5 98.1 Pulse 119 110 Resp 24 18 18 B/P (MAP) 132/93 (106) 143/85 (104) Pulse Ox 100 100 100 O2 Delivery Room Air Room Air Room Air Room Air 08/25/16 08/25/16 08/26/16 08/26/16 21:38 23:25 07:15 07:44 Temp 97.5 98.6 97.5 98.6 Pulse 121 104 Resp 19 24 18 B/P (MAP) 135/77 (96) 136/85 (102) Pulse Ox 100 100 99 O2 Delivery Room Air Room Air 08/26/16 08/26/16 08/26/16 08/26/16 08:00 08:19 08:44 10:51 Temp 98.6 98.6 Pulse 104 132 Resp 20 22 B/P (MAP) 136/85 131/96 (108) Pulse Ox 95 O2 Delivery Room Air Room Air Room Air Intake and Output 08/25/16 08/25/16 08/26/16 15:00 23:00 07:00 Intake Total 200 ml 350 ml 600 ml Balance 200 ml 350 ml 600 ml MARAL MANRIQUEZ III DO Aug 26, 2016 11:51
[2016-08-26] MEDS: clonazePAM 1 MG TABLET PO PRN ×3 (12:00→19:56)
[2016-08-26 14:25] VITALS: BP 144/83
[2016-08-26] MEDS: NICOTINE 21MG PATCH. TD SCH (17:02)
[2016-08-26 19:00] VITALS: BP 115/76
[2016-08-26] MEDS: ATORVASTATIN CALCIUM 10 MG TABLET. PO SCH (19:56)
[2016-08-26 23:00] VITALS: BP 125/91
[2016-08-27] MEDS: HYDROcodone/APAP 10/325 1 TAB TABLET PO PRN ×3 (01:42→17:16)
[2016-08-27 06:24] VITALS: BP 140/90
[2016-08-27 06:56] VITALS: BP 129/91
[2016-08-27] MEDS: CELECOXIB 200 MG CAPSULE. PO SCH (09:00)
[2016-08-27] MEDS: FAMOTIDINE 20 MG TABLET. PO SCH ×2 (09:03→19:53)
[2016-08-27] MEDS: ASPIRIN ENTERIC COATED 81 MG TABLET.DR. PO SCH (09:04)
[2016-08-27] MEDS: ALLOPURINOL 300 MG TABLET. PO SCH (09:04)
[2016-08-27] MEDS: clonazePAM 1 MG TABLET PO PRN ×2 (09:04→17:16)
[2016-08-27] MEDS: hydrOXYzine PAMOATE 25 MG CAPSULE PO SCH ×3 (09:04→19:53)
[2016-08-27] MEDS: NICOTINE 21MG PATCH. TD SCH (09:04)
[2016-08-27] MEDS: METOPROLOL SUCC 24HR ER 25 MG TAB.ER.24H. PO SCH (09:04)
[2016-08-27 11:00] VITALS: BP 133/88
--- NOTE | 2016-08-27 12:34 | PDOC ---
PROGRESS NOTES Chief Complaint Chief Complaint 1. Hyponatremia 2. Current SI with means and plan 3. Tachycardia 4. Prev hx of SI 5. HTN 6. Depression History of Present Illness History of Present Illness pt is lying comfortably in bed this morning, she is more conversational today and her mood has improved, she is about to take a shower with nursing assistance , still on 1:1 Vitals Vitals Vital Signs Date Time Temp Pulse Resp B/P (MAP) Pulse Ox O2 Delivery O2 Flow Rate FiO2 08/27/16 09:04 117 129/91 08/27/16 08:00 Room Air 08/27/16 06:56 98.0 22 99 98.0 Physical Exam General: Alert, Oriented X3, Cooperative, No acute distress Heart: Regular rate, No murmurs Lungs: Clear Abdomen: Normal bowel sounds, Soft, No tenderness Extremities: No clubbing, No cyanosis, No edema Skin: No rashes, No breakdown, No significant lesion Review of Systems Review of Systems denies N/V/D and PHILLIPS Assessment and Plan Assessmemt and Plan Assessment 1. Hyponatremia 2. Current SI with means and plan 3. Tachycardia 4. Prev hx of SI 5. HTN 6. Depression Plan 1. Continue 1:1 monitoring 2. Regular diet 3. Continue home meds 4. Discussed plan of care with nursing 5. PT/OT 6. Recheck CBC and BMP tomorrow 7. Reviewed imaging: CXR showed no acute processes 8. Discharge pending approval at in psych, possibly [place] or [facility] Problems: Comment Review of Relevant I have reviewed the following items jem (where applicable) has been applied. Medications Current Medications Multivitamins 10 ml/Folic Acid 1 mg/Thiamine HCl 100 mg/Sodium Chloride 1,011.2 ml @ 1,000 mls/ hr 1X ONCE IV Last administered on 08/23/16 22:33; Start 08/23 at 23:00; Stop 08/24/16 at 00:00; Status DC Potassium Chloride (KCl Oral Soln) 40 meq 1X ONCE PO Last administered on 00:40; Start 08/24/16 at 00:15; Stop 08/24/16 at 00:16; Status DC Chlordiazepoxide (Librium) 25 mg Q6HRS PO Last administered on 08/25/16 06:04; Start 08/24/16 at 00:15; Stop 08/25/16 at 06:01; Status DC Ondansetron HCl (Zofran) 4 mg PRN Q8HRS PRN IV NAUSEA/VOMITING; Start 08/24/16 at 01:15; Stop 08/24/16 at 07:28; Status DC Potassium Chloride 40 meq/ Sodium Chloride 1,020 ml @ 100 mls/hr [id number] IV Last administered on 08/24/16 21:20; Start 08/24/16 at 02:00; Stop 08/25/16 at 01: 59; Status DC Acetaminophen (Tylenol) 650 mg PRN Q4HRS PRN PO FEVER; Start 08/24/16 at 01:15; Stop 08/25/16 at 01:14; Status DC Ondansetron HCl (Zofran) 4 mg PRN Q6HRS PRN IV NAUSEA/VOMITING; Start 08/24/16 at 07:27; Stop 08/25/16 at 07:26; Status DC Allopurinol (Zyloprim) 300 mg DAILY PO Last administered on 08/27/16 09:04; Start 08/24/16 at 12:00 Aspirin (Ecotrin) 81 mg DAILY PO Last administered on 08/27/16 09:04; Start 08/24/16 at 12:00 Carisoprodol (Soma) 350 mg PRN TID PRN PO spasms; Start 08/24/16 at 11:30 Celecoxib (CeleBREX) 200 mg DAILY PO ; Start 08/24/16 at 12:00; Stop 08/24/16 at 12:00; Status DC Clonazepam (KlonoPIN) 1 mg PRN TID PRN PO nerves Last administered on 08/27/16 09:04; Start 08/24/16 at 11:30 Acetaminophen/ Hydrocodone Bitart (Lortab 10/325) 1 tab PRN Q6HRS PRN PO PAIN Last administered on 08/27/16 09:03; Start 08/24/16 at 11:30 Metoprolol Succinate (Toprol Xl) 25 mg DAILY PO Last administered on 08/27/16 09:04; Start 08/24/16 at 12:00 Hydroxyzine Pamoate (Vistaril) 25 mg TID PO Last administered on 08/27/16 09:04 ; Start 08/24/16 at 14:00 Atorvastatin Calcium (Lipitor) 5 mg QHS PO Last administered on 08/26/16 19:56 ; Start 08/24/16 at 21:00 Famotidine (Pepcid) 20 mg BID PO Last administered on 08/27/16 09:03; Start 08/24/16 at 12:00 Lorazepam (Ativan) 2 mg PRN Q6HRS PRN IV ANXIETY / AGITATION Last administered on 08/26/16 19:57; Start 08/24/16 at 19:45 Celecoxib (CeleBREX) 200 mg DAILY PO Last administered on 08/27/16 09:00; Start 08/26/16 at 09:00 Nicotine (Nicoderm Cq 21mg) 1 patch DAILY TD Last administered on 08/27/16 09: 04; Start 08/26/16 at 17:00 Active Scripts Active Reported Hydroxyzine Hcl 25 Mg Tablet 25 Mg PO TID Acyclovir 800 Mg Tablet 800 Mg PO DAILY Soma (Carisoprodol) 350 Mg Tablet 350 Mg PO TID&HS Klonopin (Clonazepam) 1 Mg Tablet 1 Tab PO TID Allopurinol 300 Mg Tablet 1 Tab PO DAILY Metoprolol Succinate ( Xl ) (Metoprolol Succinate) 25 Mg Tab.er.24h 1 Tab PO DAILY Pravastatin Sodium 20 Mg Tablet 1 Tab PO DAILY Celebrex (Celecoxib) 200 Mg Capsule 1 Cap PO DAILY Hydrocodone-Apap 10-325 (Hydrocodone Bit/Acetaminophen) 1 Each Tablet 1 Tab PO PRN Q6HRS PRN Oxycontin (Oxycodone HCl) 20 Mg Tab.er.12h 20 Mg PO BID Vitamin D2 (Ergocalciferol (Vitamin D2)) 400 Unit Tablet 400 Unit PO Ranitidine Hcl 150 Mg Tablet 1 Tab PO BID Aspir 81 (Aspirin) 81 Mg Tablet. 1 Tab PO DAILY Vitals/I & O Vital Sign - Last 24 Hours 08/26/16 08/26/16 08/26/16 08/26/16 14:25 19:00 19:56 20:00 Temp 98.6 97.8 98.6 97.8 Pulse 113 112 Resp 22 B/P (MAP) 144/83 (103) 115/76 (89) Pulse Ox 99 99 99 O2 Delivery Room Air Room Air Room Air Room Air 08/26/16 08/26/16 08/27/16 08/27/16 20:56 23:00 01:42 03:00 Temp 98.3 98.3 Pulse 125 Resp 18 20 18 B/P (MAP) 125/91 (102) Pulse Ox 99 98 98 O2 Delivery Room Air Room Air Room Air Room Air 08/27/16 08/27/16 08/27/16 08/27/16 05:25 06:24 06:56 08:00 Temp 97.7 98.0 97.7 98.0 Pulse 125 117 Resp 20 22 B/P (MAP) 140/90 (107) 129/91 (104) Pulse Ox 98 99 O2 Delivery Room Air Room Air Room Air Room Air 08/27/16 09:04 Pulse 117 B/P (MAP) 129/91 Intake and Output 08/26/16 08/26/16 08/27/16 15:00 23:00 07:00 Intake Total 450 ml 120 ml Output Total 0 ml Balance 450 ml 120 ml AMRAL MANRIQUEZ III DO Aug 27, 2016 12:34
[2016-08-27 15:00] VITALS: BP 140/89
[2016-08-27 19:00] VITALS: BP 133/88
[2016-08-27] MEDS: ATORVASTATIN CALCIUM 10 MG TABLET. PO SCH (19:53)
[2016-08-27 22:32] VITALS: BP 133/97
[2016-08-28] MEDS: clonazePAM 1 MG TABLET PO PRN ×2 (00:31→08:17)
[2016-08-28] MEDS: HYDROcodone/APAP 10/325 1 TAB TABLET PO PRN ×3 (00:32→14:22)
[2016-08-28 03:08] VITALS: BP 116/77
[2016-08-28 07:00] VITALS: BP 117/82
[2016-08-28] MEDS: ASPIRIN ENTERIC COATED 81 MG TABLET.DR. PO SCH (08:17)
[2016-08-28] MEDS: hydrOXYzine PAMOATE 25 MG CAPSULE PO SCH ×2 (08:17→14:22)
[2016-08-28] MEDS: METOPROLOL SUCC 24HR ER 25 MG TAB.ER.24H. PO SCH (08:18)
[2016-08-28] MEDS: FAMOTIDINE 20 MG TABLET. PO SCH (08:18)
[2016-08-28] MEDS: ALLOPURINOL 300 MG TABLET. PO SCH (08:18)
[2016-08-28] MEDS: CELECOXIB 200 MG CAPSULE. PO SCH (08:18)
[2016-08-28] MEDS: NICOTINE 21MG PATCH. TD SCH (08:19)
[2016-08-28] MEDS ORDERED: LITHIUM CARBONATE 300 MG CAPSULE PO SCH (10:30)
[2016-08-28 10:46] VITALS: BP 92/64
--- NOTE | 2016-08-28 14:23 | PDOC ---
PROGRESS NOTES Chief Complaint Chief Complaint 1. Hyponatremia 2. Current SI with means and plan 3. Tachycardia 4. Prev hx of SI 5. HTN 6. Depression History of Present Illness History of Present Illness unable to sleep last night very tired and sleepy today will Dc 1:1 very emotional Vitals Vitals Vital Signs Date Time Temp Pulse Resp B/P (MAP) Pulse Ox O2 Delivery O2 Flow Rate FiO2 08/28/16 10:46 97.4 118 18 92/64 (73) 96 Room Air 97.4 Physical Exam General: Alert, Oriented X3, Cooperative, No acute distress Heart: Regular rate, No murmurs Lungs: Clear Abdomen: Normal bowel sounds, Soft, No tenderness Extremities: No clubbing, No cyanosis, No edema Skin: No rashes, No breakdown, No significant lesion Review of Systems Review of Systems no n./v/d Assessment and Plan Assessmemt and Plan Problems Medical Problems: (1) Hyponatremia Status: Acute (2) Suicidal ideations Status: Acute (3) Tachycardia Status: Acute Problems: Comment Review of Relevant I have reviewed the following items jem (where applicable) has been applied. Medications Current Medications Multivitamins 10 ml/Folic Acid 1 mg/Thiamine HCl 100 mg/Sodium Chloride 1,011.2 ml @ 1,000 mls/ hr 1X ONCE IV Last administered on 08/23/16 22:33; Start 08/23 at 23:00; Stop 08/24/16 at 00:00; Status DC Potassium Chloride (KCl Oral Soln) 40 meq 1X ONCE PO Last administered on 00:40; Start 08/24/16 at 00:15; Stop 08/24/16 at 00:16; Status DC Chlordiazepoxide (Librium) 25 mg Q6HRS PO Last administered on 08/25/16 06:04; Start 08/24/16 at 00:15; Stop 08/25/16 at 06:01; Status DC Ondansetron HCl (Zofran) 4 mg PRN Q8HRS PRN IV NAUSEA/VOMITING; Start 08/24/16 at 01:15; Stop 08/24/16 at 07:28; Status DC Potassium Chloride 40 meq/ Sodium Chloride 1,020 ml @ 100 mls/hr [id number] IV Last administered on 08/24/16 21:20; Start 08/24/16 at 02:00; Stop 08/25/16 at 01: 59; Status DC Acetaminophen (Tylenol) 650 mg PRN Q4HRS PRN PO FEVER; Start 08/24/16 at 01:15; Stop 08/25/16 at 01:14; Status DC Ondansetron HCl (Zofran) 4 mg PRN Q6HRS PRN IV NAUSEA/VOMITING; Start 08/24/16 at 07:27; Stop 08/25/16 at 07:26; Status DC Allopurinol (Zyloprim) 300 mg DAILY PO Last administered on 08/28/16 08:18; Start 08/24/16 at 12:00 Aspirin (Ecotrin) 81 mg DAILY PO Last administered on 08/28/16 08:17; Start at 12:00 Carisoprodol (Soma) 350 mg PRN TID PRN PO spasms; Start 08/24/16 at 11:30 Celecoxib (CeleBREX) 200 mg DAILY PO ; Start 08/24/16 at 12:00; Stop 08/24/16 at 12:00; Status DC Clonazepam (KlonoPIN) 1 mg PRN TID PRN PO nerves Last administered on 08:17; Start 08/24/16 at 11:30 Acetaminophen/ Hydrocodone Bitart (Lortab 10/325) 1 tab PRN Q6HRS PRN PO PAIN Last administered on 08/28/16 08:19; Start 08/24/16 at 11:30 Metoprolol Succinate (Toprol Xl) 25 mg DAILY PO Last administered on 08/28/16 08:18; Start 08/24/16 at 12:00 Hydroxyzine Pamoate (Vistaril) 25 mg TID PO Last administered on 08/28/16 08: 17; Start 08/24/16 at 14:00 Atorvastatin Calcium (Lipitor) 5 mg QHS PO Last administered on 08/27/16 19:53 ; Start 08/24/16 at 21:00 Famotidine (Pepcid) 20 mg BID PO Last administered on 08/28/16 08:18; Start at 12:00 Lorazepam (Ativan) 2 mg PRN Q6HRS PRN IV ANXIETY / AGITATION Last administered on 08/28/16 11:09; Start 08/24/16 at 19:45 Celecoxib (CeleBREX) 200 mg DAILY PO Last administered on 08/28/16 08:18; Start 08/26/16 at 09:00 Nicotine (Nicoderm Cq 21mg) 1 patch DAILY TD Last administered on 08/28/16 08: 19; Start 08/26/16 at 17:00 [place] Carbonate 300 mg DAILY PO Last administered on 08/28/16 10:45; Start 08/28/16 at 10:30 Quetiapine Fumarate (SEROquel) 50 mg HS PO ; Start 08/28/16 at 21:00 Active Scripts Active Reported Hydroxyzine Hcl 25 Mg Tablet 25 Mg PO TID Acyclovir 800 Mg Tablet 800 Mg PO DAILY Soma (Carisoprodol) 350 Mg Tablet 350 Mg PO TID&HS Klonopin (Clonazepam) 1 Mg Tablet 1 Tab PO TID Allopurinol 300 Mg Tablet 1 Tab PO DAILY Metoprolol Succinate ( Xl ) (Metoprolol Succinate) 25 Mg Tab.er.24h 1 Tab PO DAILY Pravastatin Sodium 20 Mg Tablet 1 Tab PO DAILY Celebrex (Celecoxib) 200 Mg Capsule 1 Cap PO DAILY Hydrocodone-Apap 10-325 (Hydrocodone Bit/Acetaminophen) 1 Each Tablet 1 Tab PO PRN Q6HRS PRN Oxycontin (Oxycodone HCl) 20 Mg Tab.er.12h 20 Mg PO BID Vitamin D2 (Ergocalciferol (Vitamin D2)) 400 Unit Tablet 400 Unit PO Ranitidine Hcl 150 Mg Tablet 1 Tab PO BID Aspir 81 (Aspirin) 81 Mg Tablet. 1 Tab PO DAILY Vitals/I & O Vital Sign - Last 24 Hours 08/27/16 08/27/16 08/27/16 08/27/16 15:00 17:16 19:00 19:57 Temp 98.3 97.7 98.3 97.7 Pulse 117 133 Resp 20 18 B/P (MAP) 140/89 (106) 133/88 (103) Pulse Ox 99 97 O2 Delivery Room Air Room Air Room Air Room Air 08/27/16 08/28/16 08/28/16 08/28/16 22:32 00:32 03:08 07:00 Temp 97.8 97.7 97.6 97.8 97.7 97.6 Pulse 135 119 138 Resp 18 18 18 18 B/P (MAP) 133/97 (109) 116/77 (90) 117/82 (94) Pulse Ox 99 99 98 100 O2 Delivery Room Air Room Air Room Air Room Air 08/28/16 08/28/16 08/28/16 08/28/16 08:00 08:18 08:19 09:19 Pulse 138 B/P (MAP) 117/82 O2 Delivery Room Air Room Air Room Air 08/28/16 10:46 Temp 97.4 97.4 Pulse 118 Resp 18 B/P (MAP) 92/64 (73) Pulse Ox 96 O2 Delivery Room Air Intake and Output 08/27/16 08/27/16 08/28/16 15:00 23:00 07:00 Intake Total 890 ml 700 ml 560 ml Output Total 800 ml 200 ml Balance 90 ml 500 ml 560 ml KRISTIN DÍAZ MD Aug 28, 2016 14:23
[2016-08-28 15:03] VITALS: BP 136/96
--- NOTE | 2016-08-28 16:21 | PDOC3 ---
Discharge Summary Visit Information Date of Admission: Aug 24, 2016 Date of Discharge: Aug 28, 2016 Admitting Diagnosis: suicidal Final Diagnosis 1. Hyponatremia 2. Current SI with means and plan 3. Tachycardia 4. Prev hx of SI 5. HTN 6. Depression Problems Medical Problems: (1) Hyponatremia Status: Acute (2) Suicidal ideations Status: Acute (3) Tachycardia Status: Acute Brief Hospital Course Allergies Allergies Coded Allergies Type Severity Reaction Last Updated Verified ketorolac Allergy Severe anaphylaxis 05/05/16 No Penicillins Allergy Intermediate rash 05/05/16 Yes propoxyphene Allergy Intermediate 05/05/16 No haloperidol Adverse Reaction Severe altered mental status 05/05/16 Yes clindamycin Adverse Reaction Intermediate vomiting 05/05/16 Yes erythromycin base Adverse Reaction Intermediate vomiting 05/05/16 No Vital Signs Vital Signs Date Time Temp Pulse Resp B/P (MAP) Pulse Ox O2 Delivery O2 Flow Rate FiO2 08/28/16 15:22 Room Air 08/28/16 15:03 98.1 133 18 136/96 (109) 99 98.1 Brief Hospital Course Ms. Solorio is a 46 old admitted for major depression, suicidal, with suicide plan at home with a gun available. Pt admitted for psychiatric emergency 1:1 observation required, and was Manic at times from Bipolar disorder Psych hospital referrals made on admit, no placement avail until 08/28, [facility], inpatient psych admit, Discharge Information Condition at Discharge: Stable Follow Up: Weeks Disposition/Orders: D/C to Another Facility Scheduled Acyclovir (Acyclovir), 800 MG PO DAILY, (Reported) Allopurinol (Allopurinol), 1 TAB PO DAILY, (Reported) Aspirin (Aspir 81), 1 TAB PO DAILY, (Reported) Carisoprodol (Soma), 350 MG PO TID&HS, (Reported) Celecoxib (Celebrex), 1 CAP PO DAILY, (Reported) Clonazepam (Klonopin), 1 TAB PO TID, (Reported) Hydroxyzine Hcl (Hydroxyzine Hcl), 25 MG PO TID, (Reported) Metoprolol Succinate (Metoprolol Succinate ( Xl )), 1 TAB PO DAILY, (Reported) Oxycodone Hcl (Oxycontin), 20 MG PO BID, (Reported) Pravastatin Sodium (Pravastatin Sodium), 1 TAB PO DAILY, (Reported) Ranitidine Hcl (Ranitidine Hcl), 1 TAB PO BID, (Reported) Scheduled PRN Hydrocodone Bit/Acetaminophen (Hydrocodone-Apap 10-325 ), 1 TAB PO PRN Q6HRS PRN for PAIN, (Reported) Miscellaneous Medications Ergocalciferol (Vitamin D2) (Vitamin D2), 400 UNIT PO, (Reported) Patient Instructions Patient Instructions Time > 30 min, including discussion by phone with her insurance company today, KRISTIN DÍAZ MD Aug 28, 2016 16:21
[2016-08-28] MEDS ORDERED: QUEtiapine 25 MG TABLET. PO SCH (21:00)
== END 2016-08-28 16:00 | DRG 885 ==
LOC: ER 21:51 → 5 NORTH 08-24 00:12
PROVIDERS: ADMIT Internal Medicine; ATTEND Internal Medicine
DX: F31.9 Bipolar disorder, unspecified (principal); E87.1 Hypo-osmolality and hyponatremia; R45.851 Suicidal ideations; I10 Essential (primary) hypertension; M41.9 Scoliosis, unspecified; G89.29 Other chronic pain; M54.9 Dorsalgia, unspecified; F40.01 Agoraphobia with panic disorder; M19.90 Unspecified osteoarthritis, unspecified site; E87.6 Hypokalemia; R00.0 Tachycardia, unspecified; Z88.0 Allergy status to penicillin; Z88.6 Allergy status to analgesic agent; Z88.1 Allergy status to other antibiotic agents; Z88.8 Allergy status to other drugs, medicaments and biological substances; Z81.8 Family history of other mental and behavioral disorders; Z79.899 Other long term (current) drug therapy; Z79.1 Long term (current) use of non-steroidal anti-inflammatories (NSAID); Z79.82 Long term (current) use of aspirin; Z87.898 Personal history of other specified conditions
CPT/HCPCS: 36415; 51701; 71020; 80048; 80076; 80329; 81001; 83690; 84443; 85007; 85027; 93005; 96365; A6539; G0480; G0481; J2060; J3480; J7030; Q0177; 99285-25

== ENCOUNTER 2017-08-31 15:09 | Emergency (ER) | payer OTHER ==
[2017-08-31 16:25] LABS: ADD MAN DIFF? NO
[2017-08-31 16:27] LABS: BASO # 0.1 x10^3/uL (0.0-0.2); BASO % 0 % (0-3); EOS # 0.3 x10^3/uL (0.0-0.7); EOS % 2 % (0-3); HEMATOCRIT 41.1 % (36.0-47.0); HEMOGLOBIN 14.1 g/dL (12.0-15.5); LYMPH # 2.4 x10^3/uL (1.0-4.8); LYMPH % 17 % (24-48); MEAN CORPUSCULAR HEMOGLOBIN 30 pg (25-35); MEAN CORPUSCULAR HGB CONC 34 g/dL (31-37); MEAN CORPUSCULAR VOLUME 88 fL (79-100); MONO # 0.7 x10^3/uL (0.0-1.1); MONO % 5 % (0-9); NEUT # 10.7 x10^3uL (1.8-7.7); NEUT % 75 % (31-73); PLATELET COUNT 223 x10^3/uL (140-400); RED BLOOD COUNT 4.65 x10^6/uL (3.50-5.40); RED CELL DISTRIBUTION WIDTH 13.8 % (11.5-14.5); WHITE BLOOD COUNT 14.3 x10^3/uL (4.0-11.0)
[2017-08-31] MEDS ORDERED: IOHEXOL 300 MG/ML 100ML VIAL. IV (16:30)
[2017-08-31] MEDS ORDERED: IOHEXOL 240 MG/ML 50ML VIAL. PO (16:30)
[2017-08-31] MEDS: ONDANSETRON PF 4 MG/2 ML VIAL. IV (16:34)
[2017-08-31] MEDS: fentaNYL PF VIAL 100 MCG/2 ML VIAL IV ×2 (16:35→17:31)
[2017-08-31 16:42] LABS: ANION GAP 13 (6-14); BLOOD UREA NITROGEN 20 mg/dL (7-20); BUN/CREATININE RATIO 14 (6-20); CALCIUM 9.1 mg/dL (8.5-10.1); CARBON DIOXIDE 22 mmol/L (21-32); CHLORIDE 103 mmol/L (98-107); CREATININE 1.4 mg/dL (0.6-1.0); GFR 40.1; GLUCOSE 108 mg/dL (70-99); POTASSIUM 3.5 mmol/L (3.5-5.1); SODIUM 138 mmol/L (136-145)
[2017-08-31] MEDS ORDERED: CONTRAST GIVEN. MC (16:45)
[2017-08-31 16:48] LABS: ALBUMIN/GLOBULIN RATIO 1.1 (1.0-1.7); ALK PHOS 149 U/L (46-116); ALT (SGPT) 46 U/L (14-59); AMYLASE 81 U/L (25-115); AST (SGOT) 37 U/L (15-37); LIPASE 106 U/L (73-393); TOTAL BILIRUBIN 0.4 mg/dL (0.2-1.0); TOTAL PROTEIN 7.7 g/dL (6.4-8.2)
[2017-08-31 17:05] LABS: BILIRUBIN,URINE SMALL (NEG); CLARITY,URINE CLOUDY; GLUCOSE,URINE NEGATIVE (NEG); NITRITE,URINE NEGATIVE (NEG); PROTEIN,URINE NEGATIVE (NEG-TRACE)
[2017-08-31 17:09] LABS: COLOR,URINE DK YELLOW
[2017-08-31 17:12] LABS: BACTERIA,URINE MANY /HPF (0-FEW); RBC,URINE OCC /HPF (0-2); SQUAMOUS EPITHELIAL CELL,UR MANY /LPF; WBC,URINE 20-40 /HPF (0-4)
[2017-08-31] MEDS: IV NORMAL SALINE 1000ML BAG 1,000 ML IV (17:30)
== END 2017-08-31 18:40 | disposition home or self-care (01) ==
LOC: ER 15:09
DX: N39.0 Urinary tract infection, site not specified (principal); R11.0 Nausea; G89.29 Other chronic pain; Z98.51 Tubal ligation status; Z90.710 Acquired absence of both cervix and uterus; Z88.0 Allergy status to penicillin; Z88.1 Allergy status to other antibiotic agents; Z88.6 Allergy status to analgesic agent; Z88.8 Allergy status to other drugs, medicaments and biological substances
CPT/HCPCS: 36415; 74176; 80053; 81001; 82150; 83690; 85025; 96365; 96375; 96376; 99285-25; J0690; J2405; J3010; J7030